=== PATIENT | male | born 1965 | race Caucasian/White ===

== ENCOUNTER 2017-04-27 13:19 | Inpatient (IN) ==
[2017-04-27] MEDS ORDERED: DIAZEPAM 5 MG TABLET PO ONE (15:17)
[2017-04-27] MEDS ORDERED: diphenhydrAMINE CAP 25 MG CAPSULE PO ONE (15:17)
[2017-04-27] MEDS ORDERED: LIDOCAINE 1% 20 ML VIAL ONE (15:29)
[2017-04-27] MEDS ORDERED: HEPARIN/NACL 0.9% 2 UNITS/ML 1,000 ML IV ONE (15:29)
[2017-04-27] MEDS ORDERED: NITROGLYCERIN DRIP 50 MG/250 ML BOTTLE IV ONE (15:33)
[2017-04-27] MEDS ORDERED: VERAPAMIL 5 MG/2 ML VIAL ONE (15:33)
[2017-04-27] MEDS: SODIUM CHLORIDE 0.45% 1,000 ML IV SCH (15:35)
[2017-04-27] MEDS ORDERED: fentaNYL 100 MCG/2 ML VIAL ONE (15:49)
[2017-04-27] MEDS ORDERED: MIDAZOLAM 2 MG/2 ML VIAL ONE ×2 (15:49→16:05)
[2017-04-27] MEDS ORDERED: ENOXAPARIN 60 MG/0.6 ML SYRINGE ONE (15:59)
[2017-04-27] MEDS ORDERED: ZALEPLON 5 MG CAPSULE PO PRN (16:37)
[2017-04-27] MEDS ORDERED: NITROGLYCERIN SL 0.4 MG TABLET SL PRN (16:37)
[2017-04-27] MEDS ORDERED: ACETAMINOPHEN 325 MG TABLET PO PRN (16:37)
[2017-04-27] MEDS ORDERED: ONDANSETRON 4 MG/2 ML VIAL IV PRN (16:37)
[2017-04-27] MEDS ORDERED: GLUCAGON 1 MG VIAL IM PRN (16:42)
[2017-04-27] MEDS ORDERED: DEXTROSE 50% 25 GM/50 ML VIAL IV PRN (16:42)
[2017-04-27] MEDS ORDERED: hydrALAZINE 20 MG/1 ML VIAL IV PRN (16:43)
[2017-04-27] MEDS: CARVEDILOL 6.25 MG TABLET PO SCH (20:13)
[2017-04-27] MEDS ORDERED: ATORVASTATIN 80 MG TABLET PO SCH (21:00)
[2017-04-27] MEDS: INSULIN REGULAR 100 UNIT/ML SUBCUT SCH (21:39)
[2017-04-28] MEDS: SODIUM CHLORIDE 0.45% 1,000 ML IV SCH (01:19)
[2017-04-28] MEDS ORDERED: amLODIPine 5 MG TABLET PO SCH (05:00)
[2017-04-28] MEDS ORDERED: ALLOPURINOL 300 MG TABLET PO SCH (05:00)
[2017-04-28 08:18] LABS: Basophils # 0.1 10*3/uL (0.0-0.2); Basophils % 0.7 % (0.0-0.8); Eosinophils # 0.1 10*3/uL (0.0-0.87); Eosinophils % 1.1 % (0.00-10.9); Hematocrit 42.9 VOL% (42.0-52.0); Hemoglobin 14.2 GM/DL (14.0-18.0); Immature Granulocytes % 0.3 %; Immature Granulocytes Absolute 0.03 #; Lymphocytes % 21.4 % (21.2-54.2); Mean Corpuscular HGB Conc 33.1 GM/DL (32-36); Mean Corpuscular Hemoglobin 29 PG (27-34); Mean Corpuscular Volume 87.6 FL (87-102); Mean Platelet Volume 10.1 FL (9.6-12.0); Monocytes # 0.6 10*3/uL (0.11-0.8); Monocytes % 6.7 % (1.7-12.7); Neutrophils # 6.4 10*3/uL (1.4-7.4); Neutrophils % 69.8 % (38.7-73.9); Platelet Count 264 T/CUMM (130-400); White Blood Count 9.1 T/CUMM (4-12)
[2017-04-28 08:50] LABS: Risk Ratio 3.79; VLDL CHOLESTEROL 24.4 MG/DL
[2017-04-28 08:52] LABS: Calcium 8.9 MG/DL (8.5-10.1); Osmolality,Calculated 279.4 MOS/KG (273-304); Potassium 3.9 MMOL/L (3.5-5.1)
[2017-04-28] MEDS: amLODIPine 10 MG TABLET PO SCH (09:33)
[2017-04-28] MEDS: ASPIRIN EC 81 MG TABLET PO SCH (09:34)
[2017-04-28] MEDS: ISOSORBIDE MONONITRATE 30 MG TABLET PO SCH (09:34)
[2017-04-28] MEDS: CARVEDILOL 6.25 MG TABLET PO SCH (09:34)
[2017-04-28] MEDS: PANTOPRAZOLE 40 MG TABLET PO SCH (09:34)
[2017-04-28] MEDS: INSULIN REGULAR 100 UNIT/ML SUBCUT SCH (09:34)
[2017-04-28] MEDS ORDERED: GLUCAGON 1 MG VIAL IM PRN (10:04)
[2017-04-28] MEDS ORDERED: DEXTROSE 50% 25 GM/50 ML VIAL IV PRN (10:04)
[2017-04-28 12:19] LABS: Basophils # 0.1 10*3/uL (0.0-0.2); Basophils % 0.5 % (0.0-0.8); Eosinophils # 0.1 10*3/uL (0.0-0.87); Eosinophils % 0.7 % (0.00-10.9); Hematocrit 41.7 VOL% (42.0-52.0); Hemoglobin 14.3 GM/DL (14.0-18.0); Immature Granulocytes % 0.5 %; Immature Granulocytes Absolute 0.05 #; Lymphocytes # 1.9 10*3/uL (1.4-4.0); Lymphocytes % 19.5 % (21.2-54.2); Mean Corpuscular HGB Conc 34.3 GM/DL (32-36); Mean Corpuscular Hemoglobin 30 PG (27-34); Mean Corpuscular Volume 86.9 FL (87-102); Mean Platelet Volume 9.9 FL (9.6-12.0); Monocytes # 0.7 10*3/uL (0.11-0.8); Monocytes % 7.6 % (1.7-12.7); Neutrophils # 6.8 10*3/uL (1.4-7.4); Neutrophils % 71.2 % (38.7-73.9); Platelet Count 275 T/CUMM (130-400); Red Cell Distribution Width 12.1 % (9.3-17.3); White Blood Count 9.5 T/CUMM (4-12)
[2017-04-28 12:28] LABS: ABG Base Excess 1.9 MMOL/L (-2.5-2.5); ABG Oxygen Saturation 95.4 % (95-100); ABG PCO2 36.8 MM HG (35-48); ABG PO2 72.5 MM HG (80-95); ABG TCO2 21.8 MMOL/L (23-27)
[2017-04-28 12:49] LABS: Albumin 3.7 G/DL (3.4-5.0); Bilirubin,Total 0.8 MG/DL (0.2-1.0); Calcium 8.8 MG/DL (8.5-10.1); Osmolality,Calculated 278.4 MOS/KG (273-304); Potassium 3.8 MMOL/L (3.5-5.1); Total Protein 6.8 G/DL (6.4-8.3)
[2017-04-28] MEDS: CHLORHEXIDINE 4% SOLN 118 ML BOTTLE TOP SCH ×3 (13:30→20:30)
[2017-04-28] MEDS: ACETAMINOPHEN 325 MG TABLET PO PRN ×2 (16:07→20:28)
[2017-04-28] MEDS: ENOXAPARIN 40 MG/0.4 ML SYRINGE SUBCUT SCH (16:09)
[2017-04-28] MEDS: CHLORHEXIDINE 0.12% ORAL RINSE 60 ML BOTTLE SWISH/SPIT SCH (20:27)
[2017-04-29] MEDS: SODIUM CHLORIDE 0.9% 1,000 ML IV SCH ×2 (01:45→10:05)
[2017-04-29] MEDS ORDERED: PAPAVERINE 60 MG/2 ML VIAL ONE (04:44)
[2017-04-29] MEDS ORDERED: VANCOMYCIN 1,000 MG VIAL ONE (04:44)
[2017-04-29 05:38] LABS: Basophils # 0.1 10*3/uL (0.0-0.2); Basophils % 0.5 % (0.0-0.8); Eosinophils # 0.1 10*3/uL (0.0-0.87); Eosinophils % 0.9 % (0.00-10.9); Hematocrit 41.3 VOL% (42.0-52.0); Hemoglobin 13.9 GM/DL (14.0-18.0); Immature Granulocytes % 0.5 %; Immature Granulocytes Absolute 0.05 #; Lymphocytes # 1.6 10*3/uL (1.4-4.0); Lymphocytes % 17.3 % (21.2-54.2); Mean Corpuscular HGB Conc 33.7 GM/DL (32-36); Mean Corpuscular Hemoglobin 29 PG (27-34); Mean Corpuscular Volume 87.5 FL (87-102); Mean Platelet Volume 10.2 FL (9.6-12.0); Monocytes # 0.7 10*3/uL (0.11-0.8); Monocytes % 7.1 % (1.7-12.7); Neutrophils # 6.9 10*3/uL (1.4-7.4); Neutrophils % 73.7 % (38.7-73.9); Platelet Count 237 T/CUMM (130-400); Red Blood Count 4.72 MC/CUMM (3.8-5.5); White Blood Count 9.3 T/CUMM (4-12)
[2017-04-29 05:57] LABS: Calcium 8.8 MG/DL (8.5-10.1); Osmolality,Calculated 281.4 MOS/KG (273-304); Potassium 4.4 MMOL/L (3.5-5.1)
[2017-04-29] MEDS ORDERED: LORazepam 0.5 MG TABLET PO ONE (06:11)
[2017-04-29] MEDS ORDERED: LORazepam 1 MG TABLET PO ONE (06:12)
[2017-04-29] MEDS: amLODIPine 10 MG TABLET PO SCH (06:15)
[2017-04-29] MEDS: PANTOPRAZOLE 40 MG TABLET PO SCH ×2 (06:16→09:38)
[2017-04-29] MEDS: CHLORHEXIDINE 4% SOLN 118 ML BOTTLE TOP SCH ×2 (06:17→09:38)
[2017-04-29] MEDS ORDERED: CEFUROXIME INJ 1,500 MG in SODIUM CHLORIDE 0.9% 50 ML IV ONE (07:00)
[2017-04-29 07:56] LABS: ABG Base Excess -0.4 MMOL/L (-2.5-2.5); ABG HCO3 24.1 MMOL/L (20-26); ABG Oxygen Saturation 99.6 % (95-100); ABG PCO2 36.9 MM HG (35-48); ABG PH 7.416 (7.35-7.45); ABG TCO2 20.8 MMOL/L (23-27); Glucose Heart Surgery 152 MG/DL (74-106); Hematocrit Heart Surgery 39.1 PERCENT (42-52); Hemoglobin Heart Surgery 12.7 G/DL (14.0-18.0); Ionized Calcium Arterial 1.16 MMOL/L (1.21-1.46); PCO2 Patient Temp Arterial 36.9 MMHG; PH Patient Temp Arterial 7.416; Patient Temperature 37 CELCIUS; Potassium Heart/CVR 3.7 MMOL/L (3.5-5.1); Sodium Heart/CVR 140 MMOL/L (135-145)
[2017-04-29 08:02] LABS: Amorphous Crystals,Urine Occasional /HPF (Few); Apearance,Urine CLOUDY (Clear); Bilirubin,Urine Negative (Negative); Blood, Urine Small mg/dL (Negative); Glucose,Urine (UA) Negative (Negative); Ketones,Urine Negative (Negative); Nitrite,Urine Negative (Negative); Protein,Urine Negative; RBC,Urine 4 /HPF (0-4); Squamous Epithelial Cell,Urine Occasional /HPF (0-10); Urine Color Yellow (Yellow); Urine Specific Gravity 1.008 (1.001-1.035); Urine Urobilinogen < 2.0 EU/DL (0.2-1.0)
[2017-04-29] MEDS ORDERED: PHENYLEPHRINE DRIP 40 MG/250 ML PREMIX IV ONE (08:26)
[2017-04-29] MEDS ORDERED: NITROPRUSSIDE 50 MG/2 ML VIAL ONE (08:26)
[2017-04-29] MEDS ORDERED: ALBUMIN 5% 12.5 GM/250 ML VIAL IV ONE (08:26)
[2017-04-29] MEDS ORDERED: SODIUM BICARBONATE 50 MEQ/50 ML SYRINGE IV ONE ×2 (08:26→10:53)
[2017-04-29] MEDS ORDERED: EPINEPHrine 1 MG/10 ML SYRINGE ONE (08:26)
[2017-04-29] MEDS ORDERED: CALCIUM CHLORIDE 1,000 MG/10 ML SYRINGE IV ONE (08:26)
[2017-04-29] MEDS ORDERED: LIDOCAINE 100 MG/5 ML SYRINGE ONE (08:27)
[2017-04-29] MEDS ORDERED: POTASSIUM CHLORIDE RIDER 100 ML IV ONE (08:27)
[2017-04-29] MEDS ORDERED: ATROPINE 1 MG/1 ML VIAL ONE (08:27)
[2017-04-29 09:18] LABS: Hematocrit Heart Surgery 31.7 PERCENT (42-52); Hemoglobin Heart Surgery 10.2 G/DL (14.0-18.0); PCO2 Patient Temp Venous 39.9 MM HG; PH Patient Temp Venous 7.414; PO2 Patient Temp Venous 33.4 MM HG; Potassium Heart/CVR 4.2 MMOL/L (3.5-5.1); VBG Base Excess 1.1 MEQ/L (0-4); VBG HCO3 24.9 MEQ/L (24-28); VBG Oxygen Saturation 69.6 %; VBG PH 7.385; VBG PO2 38.5 MMHG (17-40)
[2017-04-29] MEDS: ASPIRIN EC 81 MG TABLET PO SCH (09:37)
[2017-04-29] MEDS: CHLORHEXIDINE 0.12% ORAL RINSE 60 ML BOTTLE SWISH/SPIT SCH ×2 (09:38→22:16)
[2017-04-29] MEDS: ISOSORBIDE MONONITRATE 30 MG TABLET PO SCH (09:38)
[2017-04-29] MEDS: ENOXAPARIN 40 MG/0.4 ML SYRINGE SUBCUT SCH (10:05)
[2017-04-29 10:13] LABS: Hematocrit Heart Surgery 33.5 PERCENT (42-52); Hemoglobin Heart Surgery 10.9 G/DL (14.0-18.0); PCO2 Patient Temp Venous 43.7 MM HG; PH Patient Temp Venous 7.388; PO2 Patient Temp Venous 31.3 MM HG; Potassium Heart/CVR 5.2 MMOL/L (3.5-5.1); VBG Base Excess 1.1 MEQ/L (0-4); VBG HCO3 24.7 MEQ/L (24-28); VBG Oxygen Saturation 60.2 %; VBG PCO2 45.8 MMHG (41-51); VBG PH 7.374; VBG PO2 33.6 MMHG (17-40)
[2017-04-29 10:49] LABS: ABG Base Excess -0.2 MMOL/L (-2.5-2.5); ABG HCO3 24.2 MMOL/L (20-26); ABG Oxygen Saturation 99.3 % (95-100); ABG PCO2 40.8 MM HG (35-48); ABG PH 7.389 (7.35-7.45); ABG TCO2 22.2 MMOL/L (23-27); Glucose Heart Surgery 200 MG/DL (74-106); Hematocrit Heart Surgery 33.5 PERCENT (42-52); Hemoglobin Heart Surgery 10.9 G/DL (14.0-18.0); Ionized Calcium Arterial 1.14 MMOL/L (1.21-1.46); PCO2 Patient Temp Arterial 40.8 MMHG; PH Patient Temp Arterial 7.389; Patient Temperature 37 CELCIUS; Potassium Heart/CVR 4.3 MMOL/L (3.5-5.1); Sodium Heart/CVR 138 MMOL/L (135-145)
[2017-04-29] MEDS ORDERED: PHENYLEPHRINE DRIP 20 MG/250 ML PREMIX IV ONE ×2 (10:52→11:52)
[2017-04-29] MEDS ORDERED: MANNITOL 12.5 GM/50 ML VIAL IV ONE (10:53)
[2017-04-29] MEDS ORDERED: HEPARIN 10,000 UNIT/10 ML VIAL ONE (10:53)
[2017-04-29] MEDS ORDERED: PROTAMINE SULFATE 250 MG/25 ML VIAL IV ONE (10:53)
[2017-04-29] MEDS ORDERED: DEXTROSE 5% KCL 20 MEQ 20 MEQ/1,000 ML BAG IV ONE (10:53)
[2017-04-29] MEDS ORDERED: MAGNESIUM SULFATE 1 GM/2 ML VIAL ONE (10:53)
[2017-04-29] MEDS ORDERED: methylPREDNISolone SOD SUC 1,000 MG/8 ML VIAL ONE (10:53)
[2017-04-29] MEDS ORDERED: ALBUMIN 25% 25 GM/100 ML VIAL IV ONE (10:53)
[2017-04-29] MEDS ORDERED: POTASSIUM CHLORIDE 20 MEQ/10 ML VIAL ONE (10:54)
[2017-04-29] MEDS ORDERED: FUROSEMIDE 20 MG/2 ML VIAL ONE (10:54)
[2017-04-29] MEDS ORDERED: PROTAMINE SULFATE 50 MG/5 ML VIAL IV ONE (10:54)
[2017-04-29] MEDS: SODIUM CHLORIDE 0.45% 1,000 ML IV SCH ×2 (11:43→12:40)
[2017-04-29] MEDS ORDERED: CALCIUM CHLORIDE 1,000 MG/10 ML VIAL IV ONE (11:51)
[2017-04-29] MEDS ORDERED: HEPARIN/NACL 0.9% 2 UNITS/ML 500 ML IV ONE (11:52)
[2017-04-29] MEDS ORDERED: SEVOFLURANE 1 UNIT/15 MINUTE INH ONE (11:52)
[2017-04-29] MEDS ORDERED: MIDAZOLAM 10 MG/2 ML VIAL ONE (11:52)
[2017-04-29] MEDS ORDERED: VECURONIUM 10 MG VIAL IV ONE (11:52)
[2017-04-29] MEDS ORDERED: LACTATED RINGERS 1,000 ML IV ONE ×2 (11:53→14:41)
[2017-04-29] MEDS ORDERED: NITROGLYCERIN DRIP 50 MG/250 ML BOTTLE IV ONE (11:53)
[2017-04-29] MEDS ORDERED: ETOMIDATE 20 MG/10 ML VIAL IV ONE (11:53)
[2017-04-29] MEDS ORDERED: SUFentanil 250 MCG/5 ML AMP ONE (11:53)
[2017-04-29] MEDS ORDERED: SODIUM CHLORIDE 0.9% 1,000 ML IV ONE (11:53)
[2017-04-29] MEDS ORDERED: SODIUM CHLORIDE 0.9% 250 ML IV ONE (11:53)
[2017-04-29] MEDS ORDERED: MORPHINE 10 MG/1 ML VIAL IV PRN (11:56)
[2017-04-29] MEDS ORDERED: NITROPRUSSIDE 100 MG in DEXTROSE 5% 250 ML IV PRN (11:56)
[2017-04-29] MEDS ORDERED: ACETAMINOPHEN 650 MG SUPP RECTAL PRN (11:56)
[2017-04-29] MEDS ORDERED: LACTATED RINGERS 250 ML IV PRN (11:56)
[2017-04-29] MEDS ORDERED: MORPHINE 2 MG/1 ML SYRINGE IV PRN (11:56)
[2017-04-29] MEDS ORDERED: INSULIN REGULAR 100 UNIT/ML IV PRN (11:56)
[2017-04-29] MEDS ORDERED: INSULIN REGULAR 100 UNIT/ML IV ONE (11:56)
[2017-04-29] MEDS ORDERED: CALCIUM CHLORIDE 1,000 MG/10 ML SYRINGE IV PRN (11:56)
[2017-04-29] MEDS ORDERED: ONDANSETRON 4 MG/2 ML VIAL IV PRN (11:56)
[2017-04-29] MEDS ORDERED: DEXTROSE 50% 25 GM/50 ML VIAL IV PRN ×2 (11:56)
[2017-04-29] MEDS ORDERED: VECURONIUM 10 MG VIAL IV PRN ×2 (11:56)
[2017-04-29] MEDS ORDERED: MINERAL OIL/PETROLATUM OPH OINT 3.5 GM TUBE ONE (11:56)
[2017-04-29] MEDS ORDERED: MAGNESIUM SULF RIDER 2 GM in PREMIX 1 EACH IV PRN (11:56)
[2017-04-29] MEDS ORDERED: PHENYLEPHRINE DRIP 40 MG/250 ML PREMIX IV PRN (11:56)
[2017-04-29] MEDS ORDERED: MAGNESIUM SULF RIDER 4 GM in PREMIX 1 EACH IV PRN (11:56)
[2017-04-29] MEDS ORDERED: ALBUMIN 5% 12.5 GM in PREMIX 1 EACH IV PRN ×3 (11:56→14:45)
[2017-04-29 12:16] LABS: ABG Base Excess 0.5 MMOL/L (-2.5-2.5); ABG HCO3 25.6 MMOL/L (20-26); ABG PCO2 43.3 MM HG (35-48); ABG PO2 81.8 MM HG (80-95); Glucose Heart Surgery 181 MG/DL (74-106); Hemoglobin Heart Surgery 12.6 G/DL (14.0-18.0); Potassium Heart/CVR 4.1 MMOL/L (3.5-5.1)
[2017-04-29 12:17] LABS: Basophils % 0.2 % (0.0-0.8); Eosinophils % 0.2 % (0.00-10.9); Hemoglobin 12.1 GM/DL (14.0-18.0); Immature Granulocytes % 1.6 %; Immature Granulocytes Absolute 0.27 #; Lymphocytes # 0.9 10*3/uL (1.4-4.0); Lymphocytes % 5.1 % (21.2-54.2); Mean Corpuscular HGB Conc 33.6 GM/DL (32-36); Mean Corpuscular Hemoglobin 29 PG (27-34); Mean Corpuscular Volume 87.6 FL (87-102); Mean Platelet Volume 9.7 FL (9.6-12.0); Monocytes # 0.7 10*3/uL (0.11-0.8); Monocytes % 3.9 % (1.7-12.7); Neutrophils # 15.5 10*3/uL (1.4-7.4); Platelet Count 232 T/CUMM (130-400); Red Blood Count 4.11 MC/CUMM (3.8-5.5); Red Cell Distribution Width 11.9 % (9.3-17.3); White Blood Count 17.4 T/CUMM (4-12)
[2017-04-29 12:27] LABS: INR 1.1; PT Patient Result 11.1 SECS; Partial Thromboplastin Time 31.7 SECS (0-40)
[2017-04-29] MEDS: MIDAZOLAM 10 MG/2 ML VIAL IV PRN ×2 (12:31→13:03)
[2017-04-29] MEDS: MIDAZOLAM 2 MG/2 ML VIAL IV PRN ×2 (12:37→13:04)
[2017-04-29 12:46] LABS: Albumin 3.6 G/DL (3.4-5.0); Bilirubin,Total 1.4 MG/DL (0.2-1.0); Calcium 8.5 MG/DL (8.5-10.1); Magnesium 2.4 MG/DL (1.8-2.4); Osmolality,Calculated 281.5 MOS/KG (273-304); Potassium 4.2 MMOL/L (3.5-5.1); Total Protein 6.4 G/DL (6.4-8.3)
[2017-04-29 12:52] LABS: CKMB % 3.9 %; Troponin I Only 3.61 NG/ML (0.00-0.045)
[2017-04-29] MEDS: LACTATED RINGERS 1,000 ML IV PRN ×2 (13:00→13:54)
[2017-04-29] MEDS: PROPOFOL 1,000 MG/100 ML BOTTLE IV SCH ×5 (13:00→23:24)
[2017-04-29] MEDS ORDERED: PROPOFOL 1,000 MG/100 ML BOTTLE IV ONE (13:05)
[2017-04-29 13:41] LABS: ABG Base Excess 0.5 MMOL/L (-2.5-2.5); ABG HCO3 25.5 MMOL/L (20-26); ABG Oxygen Saturation 97.3 % (95-100); ABG PCO2 42.6 MM HG (35-48); ABG PH 7.395 (7.35-7.45); ABG TCO2 26.8 MMOL/L (23-27); Glucose Heart Surgery 224 MG/DL (74-106); Hemoglobin Heart Surgery 11.8 G/DL (14.0-18.0); Potassium Heart/CVR 3.9 MMOL/L (3.5-5.1)
[2017-04-29] MEDS: KETOROLAC 30 MG/1 ML VIAL IV SCH ×2 (13:54→18:19)
[2017-04-29] MEDS: POTASSIUM CHLORIDE RIDER 20 MEQ in PREMIX 1 EACH IV PRN ×4 (13:54→21:42)
[2017-04-29] MEDS: INSULIN REGULAR DRIP 100 ML IV SCH ×2 (14:00→20:37)
[2017-04-29] MEDS: POTASSIUM CHLORIDE RIDER 10 MEQ in PREMIX 1 EACH IV PRN ×3 (14:23→18:59)
[2017-04-29 15:23] LABS: ABG Base Excess 1.1 MMOL/L (-2.5-2.5); ABG HCO3 25.6 MMOL/L (20-26); ABG PCO2 40.2 MM HG (35-48); ABG PH 7.422 (7.35-7.45); ABG PO2 73.9 MM HG (80-95); ABG TCO2 26.8 MMOL/L (23-27); Glucose Heart Surgery 222 MG/DL (74-106); Hemoglobin Heart Surgery 11.6 G/DL (14.0-18.0); Potassium Heart/CVR 3.8 MMOL/L (3.5-5.1)
[2017-04-29 16:09] LABS: ABG Base Excess 0.6 MMOL/L (-2.5-2.5); ABG HCO3 24.9 MMOL/L (20-26); ABG Oxygen Saturation 95.6 % (95-100); ABG PCO2 38.6 MM HG (35-48); ABG PH 7.427 (7.35-7.45); ABG PO2 79.3 MM HG (80-95); ABG TCO2 26.1 MMOL/L (23-27); Glucose Heart Surgery 205 MG/DL (74-106); Hemoglobin Heart Surgery 11.5 G/DL (14.0-18.0); Potassium Heart/CVR 4.4 MMOL/L (3.5-5.1)
[2017-04-29] MEDS ORDERED: FUROSEMIDE 40 MG/4 ML VIAL IV ONE ×2 (16:20→22:20)
[2017-04-29 18:19] LABS: ABG Base Excess 0.6 MMOL/L (-2.5-2.5); ABG HCO3 24.9 MMOL/L (20-26); ABG Oxygen Saturation 95.8 % (95-100); ABG PCO2 37.6 MM HG (35-48); ABG PH 7.426 (7.35-7.45); ABG PO2 75.6 MM HG (80-95); ABG TCO2 22.2 MMOL/L (23-27); Glucose Heart Surgery 167 MG/DL (74-106); Hematocrit Heart Surgery 33.3 PERCENT (42-52); Hemoglobin Heart Surgery 10.8 G/DL (14.0-18.0); Potassium Heart/CVR 3.8 MMOL/L (3.5-5.1)
[2017-04-29] MEDS: CEFUROXIME INJ 1,500 MG in SODIUM CHLORIDE 0.9% 50 ML IV SCH (19:17)
[2017-04-29] MEDS: NITROGLYCERIN DRIP 50 MG/250 ML BOTTLE IV SCH (20:13)
[2017-04-29 21:20] LABS: ABG Base Excess 2.6 MMOL/L (-2.5-2.5); ABG HCO3 26.6 MMOL/L (20-26); ABG Oxygen Saturation 98.1 % (95-100); ABG PCO2 38.6 MM HG (35-48); ABG PH 7.456 (7.35-7.45); ABG PO2 121.3 MM HG (80-95); ABG TCO2 27.8 MMOL/L (23-27); Glucose Heart Surgery 124 MG/DL (74-106); Hemoglobin Heart Surgery 11.8 G/DL (14.0-18.0)
[2017-04-29 22:03] LABS: CKMB % 3.2 %
[2017-04-29 22:05] LABS: Troponin I Only 9.06 NG/ML (0.00-0.045)
[2017-04-30 00:32] LABS: ABG Base Excess 2.6 MMOL/L (-2.5-2.5); ABG HCO3 26.4 MMOL/L (20-26); ABG Oxygen Saturation 96.8 % (95-100); ABG PCO2 37.9 MM HG (35-48); ABG PH 7.461 (7.35-7.45); ABG PO2 88.5 MM HG (80-95); ABG TCO2 27.6 MMOL/L (23-27); Glucose Heart Surgery 107 MG/DL (74-106); Hemoglobin Heart Surgery 11.5 G/DL (14.0-18.0)
[2017-04-30] MEDS: POTASSIUM CHLORIDE RIDER 20 MEQ in PREMIX 1 EACH IV PRN ×2 (00:39→04:41)
[2017-04-30] MEDS: KETOROLAC 30 MG/1 ML VIAL IV SCH ×4 (00:40→18:17)
[2017-04-30] MEDS: PROPOFOL 1,000 MG/100 ML BOTTLE IV SCH ×3 (01:53→15:25)
[2017-04-30] MEDS ORDERED: FUROSEMIDE 40 MG/4 ML VIAL IV ONE (03:02)
[2017-04-30 04:25] LABS: ABG Base Excess 0.9 MMOL/L (-2.5-2.5); ABG HCO3 25.2 MMOL/L (20-26); ABG Oxygen Saturation 97.1 % (95-100); ABG PCO2 37.6 MM HG (35-48); ABG PO2 88.4 MM HG (80-95); ABG TCO2 22.3 MMOL/L (23-27); Glucose Heart Surgery 125 MG/DL (74-106); Hematocrit Heart Surgery 34.7 PERCENT (42-52); Hemoglobin Heart Surgery 11.3 G/DL (14.0-18.0); Potassium Heart/CVR 4.3 MMOL/L (3.5-5.1)
[2017-04-30 04:27] LABS: Basophils % 0.1 % (0.0-0.8); Hematocrit 31.5 VOL% (42.0-52.0); Hemoglobin 10.7 GM/DL (14.0-18.0); Immature Granulocytes % 0.5 %; Immature Granulocytes Absolute 0.08 #; Lymphocytes # 0.9 10*3/uL (1.4-4.0); Lymphocytes % 5.2 % (21.2-54.2); Mean Corpuscular Hemoglobin 30 PG (27-34); Mean Corpuscular Volume 87.5 FL (87-102); Mean Platelet Volume 10.1 FL (9.6-12.0); Monocytes # 1.1 10*3/uL (0.11-0.8); Monocytes % 6.4 % (1.7-12.7); Neutrophils # 15.3 10*3/uL (1.4-7.4); Neutrophils % 87.8 % (38.7-73.9); Platelet Count 247 T/CUMM (130-400); Red Cell Distribution Width 12.1 % (9.3-17.3); White Blood Count 17.5 T/CUMM (4-12)
[2017-04-30 05:08] LABS: Albumin 3.4 G/DL (3.4-5.0); Bilirubin,Direct 0.22 MG/DL (0.0-0.20); Bilirubin,Total 0.6 MG/DL (0.2-1.0); CKMB % 1.9 %; Calcium 8.4 MG/DL (8.5-10.1); Magnesium 2.1 MG/DL (1.8-2.4); Osmolality,Calculated 281.4 MOS/KG (273-304); Potassium 4.4 MMOL/L (3.5-5.1)
[2017-04-30 05:27] LABS: Troponin I Only 5.37 NG/ML (0.00-0.045)
[2017-04-30] MEDS ORDERED: PANTOPRAZOLE 40 MG VIAL IV ONE (05:39)
[2017-04-30 06:06] LABS: VBG HCO3 25.9 MEQ/L (24-28); VBG Oxygen Saturation 84.1 %; VBG PCO2 38.3 MMHG (41-51); VBG PH 7.441; VBG PO2 50.3 MMHG (17-40)
[2017-04-30 06:30] LABS: ABG Base Excess 1.5 MMOL/L (-2.5-2.5); ABG HCO3 25.7 MMOL/L (20-26); ABG Oxygen Saturation 95.9 % (95-100); ABG PH 7.452 (7.35-7.45); ABG PO2 76.6 MM HG (80-95); ABG TCO2 22.4 MMOL/L (23-27); Glucose Heart Surgery 118 MG/DL (74-106); Hematocrit Heart Surgery 34.8 PERCENT (42-52); Hemoglobin Heart Surgery 11.3 G/DL (14.0-18.0); Potassium Heart/CVR 4.4 MMOL/L (3.5-5.1)
[2017-04-30] MEDS: CEFUROXIME INJ 1,500 MG in SODIUM CHLORIDE 0.9% 50 ML IV SCH ×2 (08:15→20:08)
[2017-04-30 08:31] LABS: ABG Base Excess 1.1 MMOL/L (-2.5-2.5); ABG HCO3 25.4 MMOL/L (20-26); ABG Oxygen Saturation 93.8 % (95-100); ABG PH 7.439 (7.35-7.45); ABG PO2 68.4 MM HG (80-95); ABG TCO2 22.5 MMOL/L (23-27); Glucose Heart Surgery 114 MG/DL (74-106); Hematocrit Heart Surgery 33.8 PERCENT (42-52); Hemoglobin Heart Surgery 10.9 G/DL (14.0-18.0); Potassium Heart/CVR 4.1 MMOL/L (3.5-5.1)
[2017-04-30] MEDS: CHLORHEXIDINE 0.12% ORAL RINSE 60 ML BOTTLE SWISH/SPIT SCH ×2 (09:07→20:14)
[2017-04-30] MEDS: NITROGLYCERIN DRIP 50 MG/250 ML BOTTLE IV SCH (10:00)
[2017-04-30 10:02] LABS: ABG Base Excess 1.2 MMOL/L (-2.5-2.5); ABG HCO3 25.5 MMOL/L (20-26); ABG Oxygen Saturation 96.7 % (95-100); ABG PO2 82.7 MM HG (80-95); ABG TCO2 22.6 MMOL/L (23-27); Glucose Heart Surgery 111 MG/DL (74-106); Hematocrit Heart Surgery 33.5 PERCENT (42-52); Hemoglobin Heart Surgery 10.9 G/DL (14.0-18.0); Potassium Heart/CVR 4.2 MMOL/L (3.5-5.1)
[2017-04-30 11:11] LABS: ABG Base Excess 1.9 MMOL/L (-2.5-2.5); ABG Oxygen Saturation 95.3 % (95-100); ABG PCO2 37.8 MM HG (35-48); ABG PH 7.443 (7.35-7.45); ABG PO2 73.9 MM HG (80-95); ABG TCO2 23.3 MMOL/L (23-27); Glucose Heart Surgery 111 MG/DL (74-106); Hematocrit Heart Surgery 32.9 PERCENT (42-52); Hemoglobin Heart Surgery 10.7 G/DL (14.0-18.0); Potassium Heart/CVR 4.2 MMOL/L (3.5-5.1)
[2017-04-30] MEDS ORDERED: HEPARIN/NACL 0.9% 2 UNITS/ML 500 ML IV ONE (11:22)
[2017-04-30] MEDS: SODIUM CHLORIDE 0.45% 1,000 ML IV SCH ×2 (11:30→11:31)
[2017-04-30 12:04] LABS: ABG Base Excess 1.6 MMOL/L (-2.5-2.5); ABG HCO3 25.8 MMOL/L (20-26); ABG Oxygen Saturation 94.9 % (95-100); ABG PH 7.446 (7.35-7.45); ABG PO2 72.9 MM HG (80-95); Glucose Heart Surgery 112 MG/DL (74-106); Hematocrit Heart Surgery 32.5 PERCENT (42-52); Hemoglobin Heart Surgery 10.5 G/DL (14.0-18.0); Potassium Heart/CVR 4.1 MMOL/L (3.5-5.1)
[2017-04-30 12:57] LABS: CKMB % 0.9 %; Troponin I Only 3.55 NG/ML (0.00-0.045)
[2017-04-30] MEDS: INSULIN REGULAR DRIP 100 ML IV SCH (14:56)
[2017-04-30 14:57] LABS: ABG Base Excess 1.8 MMOL/L (-2.5-2.5); ABG HCO3 25.9 MMOL/L (20-26); ABG Oxygen Saturation 93.4 % (95-100); ABG PCO2 38.6 MM HG (35-48); ABG PH 7.436 (7.35-7.45); ABG PO2 67.9 MM HG (80-95); ABG TCO2 23.4 MMOL/L (23-27); Glucose Heart Surgery 119 MG/DL (74-106); Hematocrit Heart Surgery 32.8 PERCENT (42-52); Hemoglobin Heart Surgery 10.6 G/DL (14.0-18.0)
[2017-04-30] MEDS: ALBUTEROL/IPRATROPIUM 3 ML NEB RESP TX SCH ×3 (15:52→23:19)
[2017-04-30] MEDS ORDERED: ZALEPLON 5 MG CAPSULE PO PRN (16:30)
[2017-04-30] MEDS: amLODIPine 10 MG TABLET PO SCH (16:50)
[2017-04-30] MEDS: INSULIN REGULAR 100 UNIT/ML SUBCUT SCH ×2 (18:25→22:09)
[2017-04-30] MEDS: oxyCODONE/ACETAMINOPHEN 5-325 MG TABLET PO PRN (20:09)
[2017-05-01] MEDS: INSULIN REGULAR 100 UNIT/ML SUBCUT SCH ×2 (01:51→05:10)
[2017-05-01] MEDS: ALBUTEROL/IPRATROPIUM 3 ML NEB RESP TX SCH ×6 (03:04→23:32)
[2017-05-01] MEDS: oxyCODONE/ACETAMINOPHEN 5-325 MG TABLET PO PRN ×3 (04:15→15:59)
[2017-05-01 04:32] LABS: Basophils % 0.1 % (0.0-0.8); Hematocrit 31.5 VOL% (42.0-52.0); Hemoglobin 10.6 GM/DL (14.0-18.0); Immature Granulocytes % 0.5 %; Immature Granulocytes Absolute 0.06 #; Lymphocytes # 1.3 10*3/uL (1.4-4.0); Lymphocytes % 9.6 % (21.2-54.2); Mean Corpuscular HGB Conc 33.7 GM/DL (32-36); Mean Corpuscular Hemoglobin 30 PG (27-34); Mean Corpuscular Volume 89.7 FL (87-102); Mean Platelet Volume 10.2 FL (9.6-12.0); Monocytes % 7.3 % (1.7-12.7); Neutrophils # 10.9 10*3/uL (1.4-7.4); Neutrophils % 82.5 % (38.7-73.9); Platelet Count 190 T/CUMM (130-400); Red Blood Count 3.51 MC/CUMM (3.8-5.5); Red Cell Distribution Width 12.2 % (9.3-17.3); White Blood Count 13.1 T/CUMM (4-12)
[2017-05-01 04:50] LABS: Albumin 3.2 G/DL (3.4-5.0); Bilirubin,Direct 0.27 MG/DL (0.0-0.20); Bilirubin,Total 0.8 MG/DL (0.2-1.0); Calcium 8.4 MG/DL (8.5-10.1); Magnesium 2.3 MG/DL (1.8-2.4); Osmolality,Calculated 284.4 MOS/KG (273-304); Potassium 4.2 MMOL/L (3.5-5.1); Total Protein 6.2 G/DL (6.4-8.3)
[2017-05-01] MEDS: NITROGLYCERIN DRIP 50 MG/250 ML BOTTLE IV SCH (06:57)
[2017-05-01] MEDS ORDERED: INSULIN REGULAR 100 UNIT/ML SUBCUT SCH (07:30)
[2017-05-01] MEDS: amLODIPine 10 MG TABLET PO SCH (08:30)
[2017-05-01] MEDS: CHLORHEXIDINE 0.12% ORAL RINSE 60 ML BOTTLE SWISH/SPIT SCH ×3 (09:18→21:25)
[2017-05-01] MEDS: ASPIRIN EC 81 MG TABLET PO SCH (10:24)
[2017-05-01] MEDS ORDERED: MORPHINE 2 MG/1 ML SYRINGE IV PRN (10:59)
[2017-05-01] MEDS ORDERED: ASPIRIN EC 325 MG TABLET PO SCH (10:59)
[2017-05-01] MEDS ORDERED: DEXTROSE 50% 25 GM/50 ML VIAL IV PRN ×2 (10:59)
[2017-05-01] MEDS ORDERED: SODIUM CHLOR 0.45% KCL 20 MEQ 20 MEQ/1,000 ML BAG IV SCH (10:59)
[2017-05-01] MEDS ORDERED: ACETAMINOPHEN 325 MG TABLET PO PRN (10:59)
[2017-05-01] MEDS ORDERED: GLUCAGON 1 MG VIAL IM PRN ×2 (10:59)
[2017-05-01] MEDS ORDERED: ALUMINUM/MAGNES/SIMETH MAX STR 30 ML UDCUP PO PRN (10:59)
[2017-05-01] MEDS ORDERED: POTASSIUM CHLORIDE 20 MEQ TABLET PO PRN (10:59)
[2017-05-01] MEDS ORDERED: ONDANSETRON 4 MG/2 ML VIAL IV PRN (10:59)
[2017-05-01] MEDS ORDERED: MAGNESIUM SULF RIDER 2 GM in PREMIX 1 EACH IV PRN (10:59)
[2017-05-01] MEDS ORDERED: MAGNESIUM SULF RIDER 4 GM in PREMIX 1 EACH IV PRN (10:59)
[2017-05-01] MEDS: FERROUS SULFATE 325 MG TABLET PO SCH (11:18)
[2017-05-01] MEDS: ASCORBIC ACID 500 MG TABLET PO SCH ×2 (11:54→21:24)
[2017-05-01] MEDS: ALLOPURINOL 300 MG TABLET PO SCH (11:55)
[2017-05-01] MEDS: DOCUSATE SODIUM 100 MG CAPSULE PO SCH (11:55)
[2017-05-01] MEDS: metFORMIN 500 MG TABLET PO SCH ×2 (11:55→21:24)
[2017-05-01] MEDS: PANTOPRAZOLE 40 MG TABLET PO SCH (11:55)
[2017-05-01] MEDS: KETOROLAC 30 MG/1 ML VIAL IV SCH ×2 (11:55→17:12)
[2017-05-01] MEDS: ATORVASTATIN 80 MG TABLET PO SCH (21:24)
[2017-05-01] MEDS: CARVEDILOL 6.25 MG TABLET PO SCH (21:25)
[2017-05-02] MEDS: KETOROLAC 30 MG/1 ML VIAL IV SCH ×4 (00:21→16:50)
[2017-05-02] MEDS: ALBUTEROL/IPRATROPIUM 3 ML NEB RESP TX SCH ×5 (03:15→19:58)
[2017-05-02 04:59] LABS: Basophils % 0.3 % (0.0-0.8); Eosinophils % 0.4 % (0.00-10.9); Hematocrit 31.6 VOL% (42.0-52.0); Hemoglobin 10.4 GM/DL (14.0-18.0); Immature Granulocytes % 0.4 %; Immature Granulocytes Absolute 0.04 #; Lymphocytes # 1.2 10*3/uL (1.4-4.0); Lymphocytes % 10.7 % (21.2-54.2); Mean Corpuscular HGB Conc 32.9 GM/DL (32-36); Mean Corpuscular Hemoglobin 30 PG (27-34); Mean Corpuscular Volume 90.8 FL (87-102); Monocytes # 0.9 10*3/uL (0.11-0.8); Neutrophils # 8.9 10*3/uL (1.4-7.4); Neutrophils % 80.2 % (38.7-73.9); Platelet Count 180 T/CUMM (130-400); Red Blood Count 3.48 MC/CUMM (3.8-5.5); Red Cell Distribution Width 12.4 % (9.3-17.3); White Blood Count 11.1 T/CUMM (4-12)
[2017-05-02 05:30] LABS: Alanine Aminotransferase 22 U/L (16-61); Alkaline Phosphatase 33 U/L (45-117); Aspartate Amino Transferase 23 U/L (0-37); Bilirubin,Indirect 0.8 MG/DL (0.0-1.0); Blood Urea Nitrogen 22 MG/DL (7-18); Calcium 8.4 MG/DL (8.5-10.1); Glucose 129 MG/DL (74-106); Magnesium 2.4 MG/DL (1.8-2.4); Osmolality,Calculated 285.3 MOS/KG (273-304); Potassium 4.2 MMOL/L (3.5-5.1); Sodium 141 MMOL/L (136-145); Total Protein 5.9 G/DL (6.4-8.3)
[2017-05-02] MEDS ORDERED: FUROSEMIDE 40 MG/4 ML VIAL IV ONE (06:00)
[2017-05-02] MEDS: FERROUS SULFATE 325 MG TABLET PO SCH (09:08)
[2017-05-02] MEDS: amLODIPine 10 MG TABLET PO SCH (09:08)
[2017-05-02] MEDS: DOCUSATE SODIUM 100 MG CAPSULE PO SCH (09:08)
[2017-05-02] MEDS: CARVEDILOL 6.25 MG TABLET PO SCH ×2 (09:09→20:43)
[2017-05-02] MEDS: ASCORBIC ACID 500 MG TABLET PO SCH ×2 (09:09→20:44)
[2017-05-02] MEDS: ALLOPURINOL 300 MG TABLET PO SCH (09:09)
[2017-05-02] MEDS: PANTOPRAZOLE 40 MG TABLET PO SCH (09:09)
[2017-05-02] MEDS: ASPIRIN EC 81 MG TABLET PO SCH (09:09)
[2017-05-02] MEDS: metFORMIN 500 MG TABLET PO SCH ×2 (09:09→21:52)
[2017-05-02] MEDS: CHLORHEXIDINE 0.12% ORAL RINSE 60 ML BOTTLE SWISH/SPIT SCH ×2 (09:09→20:44)
[2017-05-02] MEDS: oxyCODONE/ACETAMINOPHEN 5-325 MG TABLET PO PRN ×2 (09:13→20:43)
[2017-05-02] MEDS: ZALEPLON 5 MG CAPSULE PO PRN (20:43)
[2017-05-02] MEDS: ATORVASTATIN 80 MG TABLET PO SCH (20:44)
[2017-05-03] MEDS: ALBUTEROL/IPRATROPIUM 3 ML NEB RESP TX SCH ×6 (00:32→19:21)
[2017-05-03] MEDS: KETOROLAC 30 MG/1 ML VIAL IV SCH ×4 (01:05→16:37)
[2017-05-03 05:49] LABS: Basophils # 0.1 10*3/uL (0.0-0.2); Basophils % 0.7 % (0.0-0.8); Eosinophils # 0.1 10*3/uL (0.0-0.87); Eosinophils % 1.4 % (0.00-10.9); Hematocrit 32.3 VOL% (42.0-52.0); Hemoglobin 10.6 GM/DL (14.0-18.0); Immature Granulocytes % 0.9 %; Immature Granulocytes Absolute 0.08 #; Lymphocytes # 1.6 10*3/uL (1.4-4.0); Lymphocytes % 17.7 % (21.2-54.2); Mean Corpuscular HGB Conc 32.8 GM/DL (32-36); Mean Corpuscular Hemoglobin 30 PG (27-34); Mean Corpuscular Volume 90.2 FL (87-102); Mean Platelet Volume 10.3 FL (9.6-12.0); Monocytes # 0.6 10*3/uL (0.11-0.8); Monocytes % 6.8 % (1.7-12.7); Neutrophils # 6.6 10*3/uL (1.4-7.4); Neutrophils % 72.5 % (38.7-73.9); Platelet Count 205 T/CUMM (130-400); Red Blood Count 3.58 MC/CUMM (3.8-5.5); White Blood Count 9.1 T/CUMM (4-12)
[2017-05-03 06:35] LABS: Alanine Aminotransferase 25 U/L (16-61); Albumin 3.1 G/DL (3.4-5.0); Alkaline Phosphatase 39 U/L (45-117); Aspartate Amino Transferase 21 U/L (0-37); Bilirubin,Indirect 0.4 MG/DL (0.0-1.0); Blood Urea Nitrogen 26 MG/DL (7-18); Calcium 8.6 MG/DL (8.5-10.1); Glucose 126 MG/DL (74-106); Magnesium 2.2 MG/DL (1.8-2.4); Osmolality,Calculated 287.3 MOS/KG (273-304); Potassium 3.7 MMOL/L (3.5-5.1); Sodium 141 MMOL/L (136-145); Total Protein 6.1 G/DL (6.4-8.3)
[2017-05-03 06:43] LABS: Troponin I Only 0.636 NG/ML (0.00-0.045)
[2017-05-03] MEDS: ALLOPURINOL 300 MG TABLET PO SCH (08:58)
[2017-05-03] MEDS: DOCUSATE SODIUM 100 MG CAPSULE PO SCH (08:58)
[2017-05-03] MEDS: ASCORBIC ACID 500 MG TABLET PO SCH ×2 (08:58→21:39)
[2017-05-03] MEDS: amLODIPine 10 MG TABLET PO SCH (08:58)
[2017-05-03] MEDS: ASPIRIN EC 81 MG TABLET PO SCH (08:58)
[2017-05-03] MEDS: PANTOPRAZOLE 40 MG TABLET PO SCH (08:58)
[2017-05-03] MEDS: metFORMIN 500 MG TABLET PO SCH ×2 (08:58→21:38)
[2017-05-03] MEDS: FERROUS SULFATE 325 MG TABLET PO SCH (08:58)
[2017-05-03] MEDS: CHLORHEXIDINE 0.12% ORAL RINSE 60 ML BOTTLE SWISH/SPIT SCH ×2 (08:59→21:40)
[2017-05-03] MEDS: CARVEDILOL 6.25 MG TABLET PO SCH ×2 (08:59→21:40)
[2017-05-03] MEDS: MAGNESIUM HYDROXIDE SUSP 30 ML UDCUP PO PRN (14:58)
[2017-05-03] MEDS ORDERED: PHENOL 1.4% THROAT SPRAY 177 ML BOTTLE PO PRN (16:19)
[2017-05-03] MEDS ORDERED: BENZOCAINE/MENTHOL LOZENGE 18/BOX PO PRN (16:20)
[2017-05-03] MEDS: ZALEPLON 5 MG CAPSULE PO PRN (21:38)
[2017-05-03] MEDS: oxyCODONE/ACETAMINOPHEN 5-325 MG TABLET PO PRN (21:39)
[2017-05-03] MEDS: ATORVASTATIN 80 MG TABLET PO SCH (21:40)
[2017-05-04] MEDS: ALBUTEROL/IPRATROPIUM 3 ML NEB RESP TX SCH ×6 (00:05→19:51)
[2017-05-04] MEDS: KETOROLAC 30 MG/1 ML VIAL IV SCH ×2 (00:05→06:55)
[2017-05-04] MEDS: DOCUSATE SODIUM 100 MG CAPSULE PO SCH (09:26)
[2017-05-04] MEDS: CARVEDILOL 6.25 MG TABLET PO SCH ×2 (09:26→22:01)
[2017-05-04] MEDS: amLODIPine 10 MG TABLET PO SCH (09:26)
[2017-05-04] MEDS: ASCORBIC ACID 500 MG TABLET PO SCH ×2 (09:26→22:00)
[2017-05-04] MEDS: PANTOPRAZOLE 40 MG TABLET PO SCH (09:26)
[2017-05-04] MEDS: ALLOPURINOL 300 MG TABLET PO SCH (09:26)
[2017-05-04] MEDS: ASPIRIN EC 81 MG TABLET PO SCH (09:26)
[2017-05-04] MEDS: FERROUS SULFATE 325 MG TABLET PO SCH (09:26)
[2017-05-04] MEDS: metFORMIN 500 MG TABLET PO SCH ×2 (09:26→22:01)
[2017-05-04] MEDS: CHLORHEXIDINE 0.12% ORAL RINSE 60 ML BOTTLE SWISH/SPIT SCH ×2 (09:33→22:01)
[2017-05-04] MEDS: MAGNESIUM HYDROXIDE SUSP 30 ML UDCUP PO PRN (17:42)
[2017-05-04] MEDS: ATORVASTATIN 80 MG TABLET PO SCH (22:01)
[2017-05-04] MEDS: oxyCODONE/ACETAMINOPHEN 5-325 MG TABLET PO PRN (22:02)
[2017-05-04] MEDS: ZALEPLON 5 MG CAPSULE PO PRN (22:05)
[2017-05-05] MEDS: ALBUTEROL/IPRATROPIUM 3 ML NEB RESP TX SCH ×4 (00:05→10:59)
[2017-05-05 05:40] LABS: Basophils % 0.4 % (0.0-0.8); Eosinophils # 0.3 10*3/uL (0.0-0.87); Eosinophils % 2.7 % (0.00-10.9); Hematocrit 31.6 VOL% (42.0-52.0); Hemoglobin 10.5 GM/DL (14.0-18.0); Immature Granulocytes % 0.5 %; Immature Granulocytes Absolute 0.05 #; Lymphocytes # 1.8 10*3/uL (1.4-4.0); Lymphocytes % 18.4 % (21.2-54.2); Mean Corpuscular HGB Conc 33.2 GM/DL (32-36); Mean Corpuscular Hemoglobin 30 PG (27-34); Mean Corpuscular Volume 89.3 FL (87-102); Mean Platelet Volume 10.3 FL (9.6-12.0); Monocytes # 0.7 10*3/uL (0.11-0.8); Neutrophils # 6.8 10*3/uL (1.4-7.4); Platelet Count 245 T/CUMM (130-400); Red Blood Count 3.54 MC/CUMM (3.8-5.5); Red Cell Distribution Width 12.1 % (9.3-17.3); White Blood Count 9.5 T/CUMM (4-12)
[2017-05-05 06:07] LABS: Calcium 8.3 MG/DL (8.5-10.1); Magnesium 2.3 MG/DL (1.8-2.4); Osmolality,Calculated 281.3 MOS/KG (273-304); Potassium 4.4 MMOL/L (3.5-5.1)
[2017-05-05 06:15] LABS: Alanine Aminotransferase 24 U/L (16-61); Albumin 2.9 G/DL (3.4-5.0); Alkaline Phosphatase 38 U/L (45-117); Aspartate Amino Transferase 12 U/L (0-37); Bilirubin,Indirect 0.5 MG/DL (0.0-1.0); Blood Urea Nitrogen 16 MG/DL (7-18); Calcium 8.2 MG/DL (8.5-10.1); Glucose 102 MG/DL (74-106); Osmolality,Calculated 281.3 MOS/KG (273-304); Potassium 4.3 MMOL/L (3.5-5.1); Sodium 141 MMOL/L (136-145); Total Protein 5.5 G/DL (6.4-8.3); Troponin I Only 0.272 NG/ML (0.00-0.045)
[2017-05-05 08:25] VITALS: BP 140/73
[2017-05-05] MEDS ORDERED: amLODIPine 5 MG TABLET PO SCH (09:00)
[2017-05-05] MEDS ORDERED: LOSARTAN 25 MG TABLET PO SCH (09:00)
[2017-05-05] MEDS: ALLOPURINOL 300 MG TABLET PO SCH (09:27)
[2017-05-05] MEDS: DOCUSATE SODIUM 100 MG CAPSULE PO SCH (09:27)
[2017-05-05] MEDS: ASCORBIC ACID 500 MG TABLET PO SCH (09:27)
[2017-05-05] MEDS: PANTOPRAZOLE 40 MG TABLET PO SCH (09:27)
[2017-05-05] MEDS: CARVEDILOL 6.25 MG TABLET PO SCH (09:28)
[2017-05-05] MEDS: ASPIRIN EC 81 MG TABLET PO SCH (09:28)
[2017-05-05] MEDS: FERROUS SULFATE 325 MG TABLET PO SCH (09:28)
[2017-05-05] MEDS: metFORMIN 500 MG TABLET PO SCH (09:28)
[2017-05-05] MEDS: CHLORHEXIDINE 0.12% ORAL RINSE 60 ML BOTTLE SWISH/SPIT SCH (09:32)
== END 2017-05-05 12:00 | disposition home health service (06) | DRG 234 ==
LOC: EDBD → EDUNIT# → N.ED 13:19 → N.CL 15:30 → N.ED 15:30 → N.TELES 15:30 → N.CL 17:55 → N.TELES 17:58 → N.CVR 04-29 09:02 → N.ICU 04-30 16:19 → N.TELES 05-01 10:42
PROVIDERS: ADMIT Internal Medicine Interventional Cardiology; ATTEND Internal Medicine Interventional Cardiology

== ENCOUNTER 2017-09-04 18:59 | Inpatient (IN) ==
[2017-09-04] MEDS ORDERED: ALBUTEROL/IPRATROPIUM 3 ML NEB RESP TX STA (20:56)
[2017-09-04] MEDS ORDERED: MORPHINE 2 MG/1 ML SYRINGE IV STA (20:56)
[2017-09-04] MEDS ORDERED: ONDANSETRON 4 MG/2 ML VIAL IV STA (20:56)
[2017-09-04] MEDS ORDERED: FUROSEMIDE 100 MG/10 ML VIAL IV STA (20:56)
[2017-09-04] MEDS ORDERED: FUROSEMIDE 100 MG/10 ML VIAL ONE (21:08)
[2017-09-04 21:10] LABS: Basophils % 0.4 % (0.0-0.8); Eosinophils # 0.3 10*3/uL (0.0-0.87); Eosinophils % 2.9 % (0.00-10.9); Hemoglobin 13.7 GM/DL (14.0-18.0); Immature Granulocytes % 0.4 %; Immature Granulocytes Absolute 0.04 #; Lymphocytes % 20.8 % (21.2-54.2); Mean Corpuscular HGB Conc 33.4 GM/DL (32-36); Mean Corpuscular Hemoglobin 29 PG (27-34); Mean Corpuscular Volume 85.4 FL (87-102); Mean Platelet Volume 10.2 FL (9.6-12.0); Monocytes # 0.6 10*3/uL (0.11-0.8); Monocytes % 6.8 % (1.7-12.7); Neutrophils # 6.5 10*3/uL (1.4-7.4); Neutrophils % 68.7 % (38.7-73.9); Platelet Count 221 T/CUMM (130-400); Red Cell Distribution Width 13.6 % (9.3-17.3); White Blood Count 9.5 T/CUMM (4-12)
[2017-09-04 21:19] LABS: PT Patient Result 10.3 SECS
[2017-09-04 21:26] LABS: Alanine Aminotransferase 23 U/L (16-61); Albumin 3.9 G/DL (3.4-5.0); Alkaline Phosphatase 64 U/L (45-117); Aspartate Amino Transferase 19 U/L (0-37); Blood Urea Nitrogen 18 MG/DL (7-18); Calcium 9.3 MG/DL (8.5-10.1); Glucose 153 MG/DL (74-106); Potassium 3.8 MMOL/L (3.5-5.1); Sodium 143 MMOL/L (136-145); Total Protein 7.6 G/DL (6.4-8.3); Troponin I Only 0.035 NG/ML (0.00-0.045)
[2017-09-04 21:28] LABS: Apearance,Urine Slightly Hazy (Clear); Bacteria,Urine Many /HPF (Few); Bilirubin,Urine Negative (Negative); Blood, Urine Negative (Negative); Glucose,Urine (UA) Negative (Negative); Ketones,Urine Negative (Negative); Mucus,Urine Occasional /LPF (Occasional); Nitrite,Urine Negative (Negative); Protein,Urine Negative; RBC,Urine 2 /HPF (0-4); Squamous Epithelial Cell,Urine Occasional /HPF (0-10); Urine Color Yellow (Yellow); Urine Specific Gravity 1.015 (1.001-1.035); Urine Urobilinogen < 2.0 EU/DL (0.2-1.0); WBC,Urine 126 /HPF (0-6)
[2017-09-04] MEDS ORDERED: cefTRIAXone 1,000 MG in SODIUM CHLORIDE 0.9% 100 ML IV STA (21:47)
[2017-09-04 21:58] LABS: Barbiturates Screen,Urine Negative (Negative); Benzodiazepines Screen,Urine Negative (Negative); Cannabinoid Screen,Urine Negative (Negative); Opiate Screen,Urine Negative (Negative); Phencyclidine Screen,Urine Negative (Negative)
[2017-09-04] MEDS ORDERED: cefTRIAXone 1,000 MG VIAL ONE (22:28)
[2017-09-04] MEDS ORDERED: POTASSIUM CHLORIDE 20 MEQ TABLET PO PRN (23:05)
[2017-09-05] MEDS: NITROGLYCERIN 2% OINT 1 INCH/GM PACK TOP SCH ×3 (01:10→15:18)
[2017-09-05 02:09] LABS: Risk Ratio 2.72; VLDL CHOLESTEROL 20.4 MG/DL
[2017-09-05] MEDS ORDERED: ACETAMINOPHEN 325 MG TABLET PO PRN (08:04)
[2017-09-05] MEDS: ASPIRIN EC 325 MG TABLET PO SCH (08:36)
[2017-09-05] MEDS ORDERED: CARVEDILOL 6.25 MG TABLET PO SCH (09:00)
[2017-09-05] MEDS ORDERED: ENOXAPARIN 40 MG/0.4 ML SYRINGE SUBCUT SCH (09:00)
[2017-09-05] MEDS ORDERED: POTASSIUM CHLORIDE RIDER 10 MEQ in PREMIX 1 EACH IV PRN (09:15)
[2017-09-05] MEDS ORDERED: MAGNESIUM SULF RIDER 2 GM in PREMIX 1 EACH IV PRN (09:15)
[2017-09-05] MEDS ORDERED: diphenhydrAMINE CAP 25 MG CAPSULE PO ONE (09:15)
[2017-09-05] MEDS ORDERED: DIAZEPAM 5 MG TABLET PO ONE (09:15)
[2017-09-05] MEDS ORDERED: ASPIRIN 325 MG TABLET PO ONE (09:15)
[2017-09-05] MEDS: ATORVASTATIN 80 MG TABLET PO SCH (09:26)
[2017-09-05] MEDS: LOSARTAN 25 MG TABLET PO SCH (09:27)
[2017-09-05] MEDS: ASCORBIC ACID 500 MG TABLET PO SCH ×2 (09:27→21:50)
[2017-09-05] MEDS: ALLOPURINOL 300 MG TABLET PO SCH (09:27)
[2017-09-05] MEDS ORDERED: SODIUM CHLORIDE 0.9% 1,000 ML IV SCH (09:30)
[2017-09-05] MEDS ORDERED: LIDOCAINE 1% 20 ML VIAL ONE (10:05)
[2017-09-05] MEDS ORDERED: MEPERIDINE 25 MG/1 ML VIAL ONE ×2 (10:21→10:41)
[2017-09-05] MEDS ORDERED: MIDAZOLAM 2 MG/2 ML VIAL ONE (10:21)
[2017-09-05] MEDS ORDERED: HEPARIN 5,000 UNIT/1 ML VIAL ONE (10:48)
[2017-09-05] MEDS ORDERED: CARVEDILOL 6.25 MG TABLET PO ONE (12:19)
[2017-09-05] MEDS: ACETAMINOPHEN 325 MG TABLET PO SCH ×2 (15:18→21:50)
[2017-09-05] MEDS: PANTOPRAZOLE 40 MG TABLET PO SCH (15:21)
[2017-09-05] MEDS: GABAPENTIN 100 MG CAPSULE PO SCH ×3 (15:22→21:50)
[2017-09-05] MEDS: FUROSEMIDE 40 MG TABLET PO SCH (15:22)
[2017-09-05] MEDS: ISOSORBIDE MONONITRATE 30 MG TABLET PO SCH (16:39)
[2017-09-05] MEDS ORDERED: metFORMIN 500 MG TABLET PO SCH (17:00)
[2017-09-05] MEDS ORDERED: cefTRIAXone 1,000 MG in SYRINGE 1 EACH IV SCH (21:00)
[2017-09-05] MEDS: CARVEDILOL 12.5 MG TABLET PO SCH (21:50)
[2017-09-06 06:24] LABS: Basophils % 0.4 % (0.0-0.8); Eosinophils # 0.2 10*3/uL (0.0-0.87); Eosinophils % 3.2 % (0.00-10.9); Hematocrit 36.6 VOL% (42.0-52.0); Hemoglobin 12.2 GM/DL (14.0-18.0); Immature Granulocytes % 0.3 %; Immature Granulocytes Absolute 0.02 #; Lymphocytes # 1.7 10*3/uL (1.4-4.0); Lymphocytes % 25.7 % (21.2-54.2); Mean Corpuscular HGB Conc 33.3 GM/DL (32-36); Mean Corpuscular Hemoglobin 29 PG (27-34); Mean Corpuscular Volume 86.7 FL (87-102); Mean Platelet Volume 10.2 FL (9.6-12.0); Monocytes # 0.5 10*3/uL (0.11-0.8); Monocytes % 7.8 % (1.7-12.7); Neutrophils # 4.2 10*3/uL (1.4-7.4); Neutrophils % 62.6 % (38.7-73.9); Platelet Count 181 T/CUMM (130-400); Red Blood Count 4.22 MC/CUMM (3.8-5.5); Red Cell Distribution Width 13.6 % (9.3-17.3); White Blood Count 6.8 T/CUMM (4-12)
[2017-09-06 06:58] LABS: Calcium 8.1 MG/DL (8.5-10.1); Osmolality,Calculated 283.4 MOS/KG (273-304)
[2017-09-06 08:09] VITALS: BP 140/66
[2017-09-06] MEDS: ISOSORBIDE MONONITRATE 30 MG TABLET PO SCH (08:53)
[2017-09-06] MEDS: ASCORBIC ACID 500 MG TABLET PO SCH (08:53)
[2017-09-06] MEDS: CARVEDILOL 12.5 MG TABLET PO SCH (08:53)
[2017-09-06] MEDS: ALLOPURINOL 300 MG TABLET PO SCH (08:53)
[2017-09-06] MEDS: LOSARTAN 25 MG TABLET PO SCH (08:53)
[2017-09-06] MEDS: FUROSEMIDE 40 MG TABLET PO SCH (08:53)
[2017-09-06] MEDS: PANTOPRAZOLE 40 MG TABLET PO SCH (08:53)
[2017-09-06] MEDS: ASPIRIN EC 325 MG TABLET PO SCH (08:53)
[2017-09-06] MEDS: GABAPENTIN 100 MG CAPSULE PO SCH (08:57)
[2017-09-06] MEDS: ACETAMINOPHEN 325 MG TABLET PO SCH (08:57)
[2017-09-06] MEDS: ATORVASTATIN 80 MG TABLET PO SCH (08:57)
[2017-09-06] MEDS ORDERED: CILOSTAZOL 50 MG TABLET PO SCH (09:00)
== END 2017-09-06 10:02 | disposition home or self-care (01) | DRG 281 ==
LOC: N.ED 18:59 → N.EDINP 18:59 → N.TELEN 09-05 00:32
PROVIDERS: ADMIT Internal Medicine Geriatric Medicine; ATTEND Internal Medicine Geriatric Medicine